=== PATIENT | female | born 1980 | race Caucasian/White ===

== ENCOUNTER 2025-02-17 10:27 | Outpatient (CLI) | payer OTHER, SELFPAY | END 2025-02-17 10:28 | disposition home or self-care (01) | PROVIDERS: PCP Nurse Practitioner Family; Visit Provider Family Medicine | DX: M62.89 Other specified disorders of muscle (principal); E55.9 Vitamin D deficiency, unspecified; E79.0 Hyperuricemia without signs of inflammatory arthritis and tophaceous disease; K90.9 Intestinal malabsorption, unspecified; Z85.42 Personal history of malignant neoplasm of other parts of uterus; Z80.49 Family history of malignant neoplasm of other genital organs; Z98.84 Bariatric surgery status | CPT/HCPCS: 82306; 82550; 82728; 86038; 86039; 86041; 86042; 86140; 86256; 86301; 86304; 86366; 86376; 86618 ==

== ENCOUNTER 2025-03-15 07:30 | Outpatient (RCR) | payer OTHER, SELFPAY | END 2025-07-13 23:59 | disposition home or self-care (01) | PROVIDERS: PCP Nurse Practitioner Family; Visit Provider Family Medicine | DX: M54.41 Lumbago with sciatica, right side (principal); M62.89 Other specified disorders of muscle; Z51.89 Encounter for other specified aftercare | CPT/HCPCS: 97110; 97140; 97162 ==

== ENCOUNTER 2025-05-22 17:58 | Outpatient (CLI) | payer OTHER, SELFPAY | END 2025-05-22 17:59 | disposition home or self-care (01) | LOC: NFLDUCREF 17:58 | DX: J02.9 Acute pharyngitis, unspecified (principal) | CPT/HCPCS: 87070 ==